=== PATIENT | male | born 1985 | race Caucasian/White ===

== ENCOUNTER 2016-06-04 15:37 | Emergency (ER) | payer OTHER, SELFPAY ==
[~2016-06-04] VITALS: Ht 195.6 cm; Wt 99.8 kg
[2016-06-04 15:38] VITALS: BP 127/73
[2016-06-04] MEDS ORDERED: BENA25CA4 PO (15:46)
[2016-06-04] MEDS ORDERED: IBUP80TA PO (15:46)
[2016-06-04] MEDS ORDERED: METO50TA2 (15:46)
[2016-06-04] MEDS ORDERED: NORCO, ANEXSIA 5/325MG TABLET (HYDROcodone/ACETAMINOPHEN) PO ONE (16:00)
[2016-06-04] MEDS ORDERED: NAPR1TAB86 PO ×2 (16:04→16:06)
== END 2016-06-04 16:12 | disposition home or self-care (01) ==
LOC: M ED 16:07
DX: M25.562 Pain in left knee (principal)

== ENCOUNTER 2016-06-06 09:14 | Emergency (ER) | payer OTHER ==
[~2016-06-06] VITALS: Ht 195.6 cm; Wt 99.8 kg
[~2016-06-06 09:14] MED LIST: BENA25CA4 PO; IBUP80TA PO; METO50TA2; NAPR1TAB86 PO
[2016-06-06 09:15] VITALS: BP 135/87
[2016-06-06] MEDS ORDERED: SIME40DR2 PO (09:26)
[2016-06-06] MEDS ORDERED: NORCO, ANEXSIA 5/325MG TABLET (HYDROcodone/ACETAMINOPHEN) PO ONE (10:15)
== END 2016-06-06 10:24 | disposition home or self-care (01) ==
LOC: M ED 10:18
DX: M17.12 Unilateral primary osteoarthritis, left knee (principal); I10 Essential (primary) hypertension; Z79.899 Other long term (current) drug therapy; Z88.0 Allergy status to penicillin; Z88.5 Allergy status to narcotic agent; L23.1 Allergic contact dermatitis due to adhesives; F17.210 Nicotine dependence, cigarettes, uncomplicated

== ENCOUNTER 2016-07-11 10:13 | Emergency (ER) | payer OTHER ==
[~2016-07-11] VITALS: Ht 195.6 cm; Wt 99.8 kg
[~2016-07-11 10:13] MED LIST changes: +SIME40DR2 PO
[2016-07-11 10:14] VITALS: BP 135/87
== END 2016-07-11 10:50 | disposition home or self-care (01) ==
LOC: M ED 10:42
DX: R21 Rash and other nonspecific skin eruption (principal); I10 Essential (primary) hypertension; J45.909 Unspecified asthma, uncomplicated; Z79.899 Other long term (current) drug therapy; Z88.0 Allergy status to penicillin; Z88.5 Allergy status to narcotic agent; L23.1 Allergic contact dermatitis due to adhesives

== ENCOUNTER 2016-08-06 00:18 | Emergency (ER) | payer OTHER ==
[~2016-08-06] VITALS: Ht 195.6 cm; Wt 99.8 kg
--- NOTE | 2016-08-06 01:19 | REP ---
Clinical: Pain and swelling. Technique: AP, lateral, bilateral oblique views of the right hand. Findings: A small corner chip fracture at the base of the third proximal phalanx identified on AP view cannot be excluded and should be correlated with physical examination and point of tenderness. Presumed old, healed fracture at the base of the fifth metacarpal bone. Impression: Small corner fracture at the base of the third digit proximal phalanx. Presumed old fracture at the base of the fifth metacarpal bone. Signed by Jaron Kramer MD 08/06/2016 01:11 A
[2016-08-06] MEDS ORDERED: NORCO 5/325MG TABLET (BULK FOR ED) PO ONE (03:00)
[2016-08-06 03:05] VITALS: BP 144/86
== END 2016-08-06 03:10 | disposition home or self-care (01) ==
LOC: M ED 01:02
DX: S62.602A Fracture of unspecified phalanx of right middle finger, initial encounter for closed fracture (principal); W23.1XXA Caught, crushed, jammed, or pinched between stationary objects, initial encounter; Y92.019 Unspecified place in single-family (private) house as the place of occurrence of the external cause; Y93.89 Activity, other specified; Y99.9 Unspecified external cause status; F17.200 Nicotine dependence, unspecified, uncomplicated; Z79.899 Other long term (current) drug therapy; Z88.0 Allergy status to penicillin; Z88.5 Allergy status to narcotic agent; Z91.09 Other allergy status, other than to drugs and biological substances

== ENCOUNTER 2016-11-23 22:30 | Emergency (ER) | payer OTHER ==
[~2016-11-23] VITALS: Ht 195.6 cm; Wt 92.5 kg
[~2016-11-23 22:30] MED LIST changes: -METO50TA2; +METO50TA7
[2016-11-24] MEDS ORDERED: CYCL10TA PO
[2016-11-24] MEDS ORDERED: BACL1TAB9 PO (00:32)
[2016-11-24 00:36] VITALS: BP 130/80
== END 2016-11-24 00:37 | disposition home or self-care (01) ==
LOC: M ED 23:30
DX: M62.830 Muscle spasm of back (principal); S16.1XXD Strain of muscle, fascia and tendon at neck level, subsequent encounter; W19.XXXD Unspecified fall, subsequent encounter; Y92.89 Other specified places as the place of occurrence of the external cause; Y93.89 Activity, other specified; Y99.8 Other external cause status; I10 Essential (primary) hypertension; Z88.0 Allergy status to penicillin; Z88.5 Allergy status to narcotic agent

== ENCOUNTER 2017-02-04 06:40 | Emergency (ER) | payer OTHER ==
[~2017-02-04] VITALS: Ht 195.6 cm; Wt 88.6 kg
[~2017-02-04 06:40] MED LIST changes: +BACL1TAB9 PO; +CYCL10TA PO
[2017-02-04] MEDS ORDERED: MEDR4PAK PO (08:08)
[2017-02-04 08:21] VITALS: BP 112/62
--- NOTE | 2017-02-04 09:12 | REP ---
LUMBOSACRAL SPINE: CLINICAL: Pain. TECHNIQUE: AP, lateral, bilateral oblique and coned down views of the lumbosacral spine. FINDINGS: Alignment and lordosis maintained. No fracture/compression injury or subluxation. Mild degenerative disc disease at the L4-5 and L5-S1 levels including end plate sclerosis and minimal disc space narrowing cannot be excluded. The remainder of examination is normal for age. IMPRESSION: Mild degenerative changes suggested at the L5-S1 and L4-5 levels. Signed by Jaron Kramer MD 02/06/2017 08:44 A
== END 2017-02-04 08:24 | disposition home or self-care (01) ==
LOC: M ED 06:40
DX: G89.29 Other chronic pain (principal); M51.37 Other intervertebral disc degeneration, lumbosacral region; M54.31 Sciatica, right side; M54.32 Sciatica, left side; I10 Essential (primary) hypertension; J45.909 Unspecified asthma, uncomplicated; Z88.0 Allergy status to penicillin; Z88.5 Allergy status to narcotic agent; Z88.8 Allergy status to other drugs, medicaments and biological substances; L23.1 Allergic contact dermatitis due to adhesives; F17.210 Nicotine dependence, cigarettes, uncomplicated

== ENCOUNTER → 2017-02-14 | Outpatient (CLI) | payer OTHER ==
[~2017-02-14] MED LIST changes: +MEDR4PAK PO
--- NOTE | 2017-02-16 09:24 | REP ---
MRI lumbar spine without contrast: History: Degenerative disc disease. Comparison radiographs are from February 04, 2017. Technique: Sagittal and axial T1 and T2-weighted scans are acquired in the usual fashion with and without fat saturation. Sequences include spin echo, turbo spin-echo, and STIR imaging sequences. MRI findings: Cortical and medullary bone signal intensity are normal. Vertebral body heights are preserved. There is no evidence of spondylolysis or spondylolisthesis. No extraspinal abnormality is seen. There is disc space narrowing and some degenerative discogenic spurring anteriorly at T12-L1. Lumbar disc spaces are preserved in height and signal intensity. No disc herniation is seen at any level. There is minimal hypertrophic facet change bilaterally at L4-5. No neural foraminal narrowing or central canal stenosis is seen at any level. No focal disc protrusion is seen. Impression: 1. Degenerative disc changes at T12-L1. 2. Minimal facet hypertrophy at L4-5 bilaterally. Otherwise normal MRI study of the lumbar spine. Signed by Rick Winkler MD 02/16/2017 04:08 P
== END ==
LOC: M RAD 08:56
PROVIDERS: ATTEND Nurse Practitioner Family
DX: M54.5 Low back pain (principal)

== ENCOUNTER 2017-06-27 17:57 | Emergency (ER) | payer OTHER | END 2017-06-27 19:17 | disposition home or self-care (01) | LOC: M ED 17:57 | DX: S60.221A Contusion of right hand, initial encounter (principal); W22.8XXA Striking against or struck by other objects, initial encounter; Y92.59 Other trade areas as the place of occurrence of the external cause; Y99.0 Civilian activity done for income or pay; I10 Essential (primary) hypertension; J45.909 Unspecified asthma, uncomplicated; F17.200 Nicotine dependence, unspecified, uncomplicated; Z88.8 Allergy status to other drugs, medicaments and biological substances; Z88.5 Allergy status to narcotic agent; Z88.0 Allergy status to penicillin; Z91.048 Other nonmedicinal substance allergy status; Z79.899 Other long term (current) drug therapy | CPT/HCPCS: 73130 ==

== ENCOUNTER → 2017-09-24 | Outpatient (CLI) | payer OTHER | LOC: M CLY 10:06 | DX: M25.519 Pain in unspecified shoulder (principal); M50.322 Other cervical disc degeneration at C5-C6 level | CPT/HCPCS: 72050 ==

== ENCOUNTER → 2018-03-17 | Outpatient (CLI) | payer OTHER ==
[~2018-03-17] MED LIST changes: +CONRAY-43 43% 50ML VIAL (Q9960) As Ordered ONE; +IBUP-1022 PO; +PROHANCE 279.3MG/ML 15ML VIAL (A9576) As Ordered ONE; +PROHANCE 279.3MG/ML 5ML VIAL (A9576) As Ordered ONE
--- NOTE | 2018-03-17 09:06 | REP ---
MR arthrography right shoulder: with pre and post intra-articular gadolinium enhanced saline injected imaging: History: Progressive right shoulder pain. Comparison right shoulder radiographs are from September 24, 2017. Technique: The injection procedure is performed and dictated separately. Pre and post intra-articular gadolinium enhanced saline injected imaging is acquired. Imaging planes include axial, oblique coronal, oblique sagittal and ABER projection images. T1 T2-weighted scans are included with and without fat saturation. MRI findings: Pre injection MR images show normal cortical and medullary bone signal intensity. There is a tiny sliver of subacromial subdeltoid bursal fluid. There is diffuse tendonitis tendinosis change in the supraspinatus tendon. Post injection MR imaging shows good filling and enhancement of the joint. No loose body is seen. There is fraying and irregularity of the anterior labral cartilage. There is a tiny pre injection paralabral cyst noted on axial T2-weighted scans. No displaced labral cartilage tear is seen. Biceps tendon appears intact and normal in position. The subscapularis and infraspinatus tendons are unremarkable. There is a tiny subcortical cyst in the superolateral humeral head. There is a small posterior paralabral cyst with heterogeneous signal intensity across the posterior labral cartilage as well implying fraying and irregularity here also. There is some enhancement in the posterior paralabral cyst post injection. There is no evidence of rotator cuff tear on post injection images. Impression: There is fraying and irregularity of both the anterior and the posterior labral cartilage. No displaced labral cartilage tear is seen. There is tendonitis tendinosis in the supraspinatus tendon. A small sliver of subacromial bursal fluid is seen. Electronically Signed by Rick Winkler MD 03/17/2018 07:32 P
--- NOTE | 2018-03-17 19:41 | REP ---
Procedure: Right shoulder arthrogram The procedure was performed under the direct supervision of . History: Right shoulder pain The benefits and risks including but not limited to pain, infection, bleeding and anaphylaxis were explained to the patient and informed consent was obtained. Technique: The right glenohumeral joint space was localized using fluoroscopic guidance. The skin was prepped and draped in a sterile fashion. 1% lidocaine was used as a local anesthetic. Using fluoroscopic guidance a 22 gauge spinal needle was inserted and advanced into the joint. 0.5 ml of Conray 43 was injected to verify placement. 11 ml of a solution containing 20 ml of sterile saline and 0.15 ml of ProHance was injected into the joint. The needle was removed and the patient was taken to MRI for postprocedural imaging. The the patient tolerated the procedure well and there were no immediate complications. Less than 6 seconds of fluoro time was utilized for this procedure. Reviewed by SANDIP Manriquez 03/17/2018 03:19 P Electronically Signed by Rick Winkler MD 03/17/2018 07:32 P
== END ==
LOC: M RADPRO 06:42
PROVIDERS: ATTEND Physician Assistant
DX: S43.431A Superior glenoid labrum lesion of right shoulder, initial encounter (principal); M75.81 Other shoulder lesions, right shoulder; Y92.89 Other specified places as the place of occurrence of the external cause; Y93.89 Activity, other specified; X58.XXXA Exposure to other specified factors, initial encounter; Y99.8 Other external cause status
CPT/HCPCS: 23350; 73223; 77002; A9576; Q9960

== ENCOUNTER → 2019-12-27 | Outpatient (REF) | payer OTHER ==
[~2019-12-27] MED LIST changes: -CONRAY-43 43% 50ML VIAL (Q9960) As Ordered ONE; +CYCL-707 PO; -CYCL10TA PO; -PROHANCE 279.3MG/ML 15ML VIAL (A9576) As Ordered ONE; -PROHANCE 279.3MG/ML 5ML VIAL (A9576) As Ordered ONE
[2019-12-27 12:28] LABS: BLOOD UREA NITROGEN 13 MG/DL (7-18); CALCIUM LEVEL 9.6 MG/DL (8.5-10.1); CARBON DIOXIDE LEVEL 29 MEQ/L (21-32); CHLORIDE LEVEL 106 MEQ/L (98-107); CREATININE FOR GFR 0.96 MG/DL (0.70-1.30); GLOMERULAR FILTRATION RATE > 60.0 (>60); GLUCOSE, FASTING 102 MG/DL (70-100); POTASSIUM SERUM 4.5 MEQ/L (3.5-5.1); SODIUM LEVEL 139 MEQ/L (136-145)
== END ==
LOC: M SFHCCLAY 08:01
PROVIDERS: ATTEND Family Medicine
DX: I11.9 Hypertensive heart disease without heart failure (principal); E87.6 Hypokalemia

== ENCOUNTER → 2020-04-04 | Outpatient (REF) | payer OTHER ==
[2020-04-04 14:41] LABS: FOLATE 6.1 NG/ML
== END ==
LOC: M SFHCCLAY 09:05
PROVIDERS: ATTEND Family Medicine
DX: R20.0 Anesthesia of skin (principal); R20.8 Other disturbances of skin sensation

== ENCOUNTER → 2020-08-28 | Outpatient (CLI) | payer OTHER ==
[~2020-08-28] MED LIST changes: -SIME40DR2 PO; +[UNRECOGNIZED DRUG - CODE] PO
--- NOTE | 2020-08-28 14:12 | REP ---
INDICATION: M25.561, ACUTE PAIN OF RIGHT KNEE. COMPARISON: Comparison right knee radiographs October 28, 2015.. TECHNIQUE: Five views. FINDINGS: Five views of the right knee demonstrate normal bones, joints, and soft tissues. No fracture or subluxation is seen. No opaque foreign body noted. A normal fabella is noted posteriorly. IMPRESSION: Negative right knee series. <Electronically signed by Chava Winkler > 08/28/20 1012
== END ==
LOC: M CLY 13:48
PROVIDERS: ATTEND Physician Assistant
DX: M25.561 Pain in right knee (principal)

== ENCOUNTER → 2021-01-01 | Outpatient (REF) | payer OTHER | LOC: M SFHCCLAY 07:24 | PROVIDERS: ATTEND Family Medicine | DX: Z51.81 Encounter for therapeutic drug level monitoring (principal); Z79.891 Long term (current) use of opiate analgesic ==

== ENCOUNTER → 2021-04-23 | Outpatient (REF) | payer OTHER | LOC: M SFHCCLAY 08:13 | PROVIDERS: ATTEND Family Medicine | DX: Z87.898 Personal history of other specified conditions (principal) ==

== ENCOUNTER → 2021-07-01 | Outpatient (REF) | payer OTHER | LOC: M SFHCCLAY 07:36 | PROVIDERS: ATTEND Family Medicine | DX: Z13.220 Encounter for screening for lipoid disorders (principal); I11.9 Hypertensive heart disease without heart failure; R35.1 Nocturia; Z53.8 Procedure and treatment not carried out for other reasons ==

== ENCOUNTER 2022-07-04 17:34 | Emergency (ER) | payer OTHER ==
[~2022-07-04] VITALS: Ht 195.6 cm; Wt 93.0 kg
[2022-07-04 17:34] VITALS: BP 136/94
[2022-07-04 21:12] LABS: GC DNA AMPLIFICATION NEGATIVE (NEGATIVE)
[2022-07-04] MEDS ORDERED: ZEAS2POW4 TP (22:39)
== END 2022-07-04 18:05 | disposition left against medical advice (07) ==
LOC: M ED 17:34
DX: Z53.21 Procedure and treatment not carried out due to patient leaving prior to being seen by health care provider (principal)

== ENCOUNTER 2022-07-04 20:14 | Emergency (ER) | payer OTHER ==
[~2022-07-04] VITALS: Ht 195.6 cm; Wt 93.0 kg
[2022-07-04] MEDS ORDERED: ZEAS2POW4 TP (22:39)
[2022-07-04 22:49] VITALS: BP 148/86
== END 2022-07-04 22:51 | disposition home or self-care (01) ==
LOC: M ED 20:14
DX: B35.6 Tinea cruris (principal); K12.0 Recurrent oral aphthae; I10 Essential (primary) hypertension; J45.909 Unspecified asthma, uncomplicated; Z79.899 Other long term (current) drug therapy; Z88.5 Allergy status to narcotic agent; Z88.0 Allergy status to penicillin; Z88.8 Allergy status to other drugs, medicaments and biological substances; Z91.89 Other specified personal risk factors, not elsewhere classified

== ENCOUNTER → 2023-02-18 | Outpatient (REF) | payer OTHER ==
[~2023-02-18] MED LIST changes: +ZEAS2POW4 TP
[2023-02-18 17:55] LABS: ALKALINE PHOSPHATASE 78 U/L (46-116); ALT/SGPT 26 U/L (7.0-40); AST/SGOT 12 U/L (<34); BILIRUBIN,TOTAL 0.2 MG/DL (0.3-1.2); BLOOD UREA NITROGEN 10 MG/DL (9-23); CARBON DIOXIDE LEVEL 29 MMOL/L (20-31); CHLORIDE LEVEL 110 MMOL/L (98-107); CREATININE FOR GFR 0.73 MG/DL (0.70-1.30); GLOMERULAR FILTRATION RATE > 60.0 (>60); GLUCOSE, FASTING 91 MG/DL (60-100); POTASSIUM SERUM 3.8 MMOL/L (3.5-5.1); SODIUM LEVEL 142 MMOL/L (136-145); TOTAL PROTEIN 6.7 G/DL (5.7-8.2)
== END ==
LOC: M SFHCCLAY 11:44
PROVIDERS: ATTEND Nurse Practitioner Family
DX: I10 Essential (primary) hypertension (principal)